=== PATIENT | female | born 1970 | race Caucasian/White ===

== ENCOUNTER 2024-12-22 17:25 | Emergency (ER) | payer BC ==
[~2024-12-22] VITALS: Ht 157.5 cm; Wt 63.5 kg
--- NOTE | 2024-12-22 18:03 | ELECTROCARDIOGRAPH REPORT ---
[facility] Test Date: 2024-12-22 Test Time: 18:01:55 Pat Name: TIFFANI SCALES Department: [facility] Patient ID: [id number] Room: Gender: F Client Professional: : [id number] Requested By: CARLOS ALBERTO BORGES Order Number: [id number] Reading MD: Dr. ROSIE Cho Measurements Intervals [place] Rate: 77 P: 65 [place]: 154 QRS: 37 QRSD: 136 T: 70 QT: 413 QTc: 468 Interpretive Statements Sinus rhythm Left bundle branch block Baseline wander in lead(s) V6 Electronically Signed On 12-24-2024 15:16:[address] ROSIE Cho Please click the below link to view image of tracing.
--- NOTE | 2024-12-22 18:12 | RADIOLOGY REPORT ---
CHEST RADIOGRAPH Indication: CP Technique: Single frontal view of the chest was obtained Comparison: None FINDINGS: Lines and Tubes: None Lungs: No focal consolidation. Pleura: No effusion. No pneumothorax. Cardiomediastinal contours: Unremarkable Bones: No acute osseous abnormality. IMPRESSION: No acute cardiopulmonary disease.
[2024-12-22 18:20] LABS: MEAN PLATELET VOLUME 8.6 FL (7.4-10.4); RED CELL DISTRIBUTION WIDTH 13.7 % (11.5-14.5)
[2024-12-22 18:52] LABS: CREATININE 0.90 MG/DL (0.40-0.90); PRO BRAIN NATRIURETIC PEPTIDE 50 PG/ML (0-125); TOTAL CARBON DIOXIDE 29.2 MMOL/L (24-32); eCRCL 55 ML/MIN; eGFR 65 ML/MIN
--- NOTE | 2024-12-22 22:27 | Physician Documentation ---
History of Present Illness ~ Chief Complaint: Chest Pain Stated Complaint: SOB/CP Time Seen by MD: 22:26 Mode of Arrival: POV HPI 54-year-old female presenting with chest soreness She tells me that she has been having some intermittent chest discomfort that she thought was acid reflux. She had outpatient testing including a stress test, that showed a septal wall defect and she was told she had a heart attack. She was referred to see a rn gastroenterology but has not seen them yet. She tells me that today she felt some soreness in her chest. She states it is located in the central chest. No radiation. She did feel slightly short of breath and dizzy, although these symptoms have improved. She denies any nausea or abdominal pain. She tells me she did not really think she was having a heart attack but her children wanted her to get checked out No other acute symptoms Medication Reconciliation Allergies: Coded Allergies: theophylline (Verified Allergy, Unknown, STREAKS UP AND DOWN BODY, 12/22/24) Review of Systems Constitutional: Denies: fever Respiratory: Reports: shortness of breath Cardiovascular: Reports: chest pain Physical Exam Vital Signs: Temperature: 98.8, Source: Oral, Heart Rate: 69, Respiratory Rate: 16, BP: 145/95, Pulse Oximetry: 98, Weight: 63.500 Oxygen Flow Rate: 0 Physical Exam General: This is a pleasant and anxious appearing middle-aged woman HEENT: Atraumatic, oropharynx is moist Heart: Regular rate and rhythm, appears sinus rhythm on the monitor, normal- appearing peripheral perfusion Lungs: Clear breath sounds bilateral, normal work of breathing, normal oxygen saturation on room air Chest wall: No reproducible tenderness on palpation of the chest Abdomen: Soft, nondistended, nontender in the epigastric region Extremities: Warm and well-perfused, no edema Neuro: Alert and oriented Psychiatric: Appears anxious about her condition, but is pleasant and cooperative Progress Results/Orders Results/Orders Vital Signs 12/22/24 12/22/24 12/22/24 12/22/24 17:45 22:22 22:28 23:13 Temp 98.8 98.8 98.8 Pulse 69 62 73 Resp 16 10 16 B/P (MAP) 145/95 139/83 (101) 132/80 Pulse Ox 98 98 97 O2 Flow Rate 0 0 Laboratory Tests Test 12/22/24 18:01 12/22/24 20:50 11/14/25 22:19 White Blood Count 8.5 Red Blood Count 5.05 Hemoglobin 15.1 Hematocrit 44.3 Mean Corpuscular Volume 87.6 Mean Corpuscular Hemoglobin 29.8 Mean Corpuscular Hemoglobin Concent 34.0 Red Cell Distribution Width 13.7 Platelet Count 279 Mean Platelet Volume 8.6 Neutrophils (%) (Auto) 52.7 Lymphocytes (%) (Auto) 34.9 Monocytes (%) (Auto) 7.1 Eosinophils (%) (Auto) 4.7 Basophils (%) (Auto) 0.6 Neutrophils # (Auto) 4.5 Lymphocytes # (Auto) 3.0 Monocytes # (Auto) 0.6 Eosinophils # (Auto) 0.4 Basophils # (Auto) 0.1 CBC Comment Sodium Level 143 Potassium Level 3.4 L Chloride Level 106 Carbon Dioxide Level 29.2 Anion Gap 8 Blood Urea Nitrogen 15 Creatinine 0.90 Estimated GFR/1.73 m2 65 BUN/Creatinine Ratio 16.7 Glucose Level 90 Calcium Level 9.0 Troponin I High Sensitivity < 4 L 4 < 4 L Troponin I High Sens Percent Delta Troponin I Hi Sens Absolute Change Pro-B-Type Natriuretic Peptide 50 Albumin 4.3 Chemistry Comments EKG/XRAY/CT/US/VASC/MRI EKG : Additional Comment I personally interpreted the EKG and this shows: Sinus rhythm, left bundle branch block, rate 77, QTC 468, no obvious ischemic changes Chest X-Ray : Additional Comments I personally interpreted the x-ray, and it shows: No focal consolidation, pneumothorax, or pulmonary edema Heart Score: Heart Score Response (Comments) Value History Slightly Suspicious 0 EKG Repolarization Disturb 1 Age 45-64 1 Risk Factors >3 or Hx ASHD 2 Troponin Normal limit 0 Total 4 Medical Decision Making Additional information obtaine: old records Findings Reviewed records the patient had including a recent stress test that showed a septal wall defect Heart Score: 4 Differential Dx:Considerations: Include: angina, aortic dissection, chest wall pain, cholelithiasis, CHF, costochondritis, esophageal reflux/spasm, gastritis, myocardial infarction, pneumonia, pneumothorax, pulmonary embolus Additional Information Patient presents with chest discomfort. Here in the ED she is minimally symptomatic. Her workup was unremarkable, no evidence of ACS or other dangerous cause for her pain. I did review her previous stress test. Overall, no dangerous cause identified for her symptoms today, and I suspect this could be related to anxiety or some other known cardiac cause. She was reassured and will be discharged with a plan for outpatient follow up with cardiology as planned. Return precautions given if she does develop worsening symptoms or other signs that could suggest a heart related process. Departure Time of Disposition: 22:57 Disposition: 01 HOME / SELF CARE / HOMELESS Impression: Primary Impression: Chest discomfort Condition: Stable Discharge Instructions: Nonspecific Chest Pain, Adult Referrals: NO PRIMARY CARE PROVIDER (PCP) Education Educated: Patient Educated regarding: diagnosis, treatment, need for follow up Signature Scribe Signature: sergo Attestation: NINI Fontanez MD Dec 22, 2024 22:27
[2024-12-22 23:13] VITALS: BP 132/80; PULSE 73; RESP 16; TEMP 98.8; O2SAT 97
== END 2024-12-22 23:17 | disposition home or self-care (01) ==
LOC: ER 17:26
DX: R07.89 Other chest pain (principal); R42 Dizziness and giddiness; R06.02 Shortness of breath
CPT/HCPCS: 36415; 71045; 80048; 83880; 84484; 85025; 93005; 99285